=== PATIENT | male | born 1990 | race Caucasian/White ===

== ENCOUNTER 2017-02-02 15:21 | Emergency (ER) | payer SELFPAY ==
[~2017-02-02] VITALS: Ht 167.6 cm; Wt 70.0 kg
[2017-02-02 17:20] VITALS: BP 136/62
== END 2017-02-02 17:23 | disposition home or self-care (01) ==
LOC: ER 15:28
DX: S89.91XA Unspecified injury of right lower leg, initial encounter (principal); S01.83XA Puncture wound without foreign body of other part of head, initial encounter; S41.031A Puncture wound without foreign body of right shoulder, initial encounter; F15.10 Other stimulant abuse, uncomplicated; F31.9 Bipolar disorder, unspecified; X58.XXXA Exposure to other specified factors, initial encounter; Y93.89 Activity, other specified; Y99.8 Other external cause status; Y92.89 Other specified places as the place of occurrence of the external cause
CPT/HCPCS: 99283; X7700; Z7610